=== PATIENT | female | born 1965 | race Caucasian/White ===

== ENCOUNTER → 2019-01-04 | Day surgery (SDC) | payer BC ==
--- NOTE | 2019-01-04 15:38 | ULT ---
ULTRASOUND GUIDED CORE BIOPSY OF RIGHT BREAST LESION 01/04/19 COMPARISON: None. HISTORY: 4-5 mm hypoechoic lesion within the right breast. FINDINGS: Informed consent was obtained prior to the procedure. There is a vague 4 mm hypoechoic lesion at the 11 o'clock position of the right breast. This lesion w as targeted for biopsy. Skin overlying the lesion was prepped and draped in a normal sterile fashion and anesthetized with 1% buffered lidocaine. With direct sonographic guidance, three 12 gauge core biopsies were obtained through the lesion. Spec imen sent to pathology for assessment, then, a post biopsy clip was placed immediately adjacent to th e right breast lesion and confirmed with mammography. Patient tolerated the procedure well. IMPRESSION: Successful ultrasound guided core biopsy of suspicious 4 mm right breast mass. POS: OFF
--- NOTE | 2019-01-05 09:56 | MMO ---
Right Breast MAMMO Unilat Diag DDI RT. CLINICAL HISTORY: Patient is 53 years old and is seen for diagnostic exam. VIEWS: The views performed were: . This study has been interpreted with the assistance of computer-aided detection. MAMMOGRAM FINDINGS: There are scattered fibroglandular densities. There is a stable mass with associated biopsy clip seen in the right breast. IMPRESSION: STABLE MASS IN THE RIGHT BREAST IS SUSPICIOUS. THE RESULTS OF THIS EXAM WERE SENT TO THE PATIENT. ACR BI-RADS Category 4 - Suspicious abnormality - biopsy should be considered MAMMOGRAPHY NOTE: 1. A negative mammogram report should not delay a biopsy if a dominant of clinically suspicious mass is present. 2. Approximately 10% to 15% of breast cancers are not detected by mammography. 3. Adenosis and dense breasts may obscure an underlying neoplasm. Reported by: JAROD MEJIA MD Electonically Signed: [id number]
== END ==
LOC: BICULT 12:28
PROVIDERS: ATTEND Family Medicine
PROC: 0H9T3ZX Drainage of Right Breast, Percutaneous Approach, Diagnostic (ICD-10-PCS; principal; 2019-01-04)
DX: C50.411 Malignant neoplasm of upper-outer quadrant of right female breast (principal); Z88.5 Allergy status to narcotic agent; Z88.8 Allergy status to other drugs, medicaments and biological substances
CPT/HCPCS: 19083; 88305; 88341; 88342

== ENCOUNTER 2019-01-17 07:58 | Outpatient (CLI) | payer BC ==
[2019-01-17 15:46] LABS: #Basophils 0.1 thou/uL (0.0-0.2); #Eosinphils 0.3 thou/uL (0.0-0.7); #Lymphocytes 4.8 thou/uL (1.20-3.40); #Monocytes 0.7 thou/uL (0.11-0.59); #Neutrophils 5.6 thou/uL (1.40-6.50); %Basophils 0.8 % (0.0-1.0); %Eosinophils 2.6 % (0.0-10.0); %Lymphocytes 41.9 % (21.0-51.0); %Monocytes 6.4 % (0.0-10.0); %Neutrophils 48.3 % (42.0-75.0); Mean Corpuscular HGB CONC 33.8 g/dL (32.0-36.0); Mean Corpuscular Hemoglobin 31.1 pg (27.0-31.0); Mean Corpuscular Volume 91.9 fL (78.0-98.0); Mean Platelet Volume 8.3 fL (7.4-10.4); Platelet Count 262 thou/uL (130-400); RBC Distribution Width 12.7 % (11.5-14.5); White Blood Cell (WBC) Count 11.5 thou/uL (4.8-10.8)
[2019-01-17 16:05] LABS: Anion Gap 14 mmol/L (10-20); BUN (Urea Nitrogen) 17 mg/dL (9.8-20.1); Calc. Creatinine Clearance 0 mL/min (70-130); Calcium 9.6 mg/dL (7.8-10.44); Carbon Dioxide 28 mmol/L (22-29); Chloride 105 mmol/L (98-107); Estimated GFR-MDRD 54; Glucose 127 mg/dL (70-105); Potassium 3.9 mmol/L (3.5-5.1); Sodium 143 mmol/L (136-145)
== END 2019-01-17 07:59 | disposition home or self-care (01) ==
LOC: LABBT 07:58
PROVIDERS: ATTEND Specialist
DX: Z01.818 Encounter for other preprocedural examination (principal); C50.911 Malignant neoplasm of unspecified site of right female breast
CPT/HCPCS: 80048; 85025; 93005; 93010

== ENCOUNTER → 2019-01-23 | Day surgery (SDC) | payer BC ==
[2019-01-17 14:58] VITALS: BMI 29.5
[~2019-01-23] MED LIST: Bupivacaine HCl 0.5%/Epinephrine 1:200,000/PF 30 ml Vial ONE; Dexamethasone 20 MG/5 ML VIAL ONE; Fentanyl 100 MCG/2 ML VIAL ONE; Isosulfan Blue 50 MG/5 ML VIAL ONE; Ketorolac Tromethamine 30 MG/ML VIAL ONE; Lidocaine 1% PF 5 ML VIAL ONE; Ondansetron PF 4 MG/2 ML Vial ONE; PROPOFOL 200 MG/20 ML VIAL ONE; Promethazine HCl 25 MG/ML VIAL ONE; ePHEDrine/0.9% NaCl/PF SYRINGE 50 mg/10 ml ONE; traMADol HCl 50 MG TAB ONE
--- NOTE | 2019-01-23 08:33 | NM ---
EXAM: NM Lymphoscintigraphy right breast PROVIDED CLINICAL HISTORY: Right breast neoplasm. COMPARISON: None FINDINGS: 431 uCi of technetium 99m filtered sulfur colloid was administered intradermally and subcutaneously i n a right periareolar location in 4 separate aliquots. Immediate anterior and lateral imaging demonstrates a focus of increased uptake in the right axilla likely corresponding to sentinel lymph n ode. IMPRESSION: Focus of increased uptake right axilla likely representing sentinel lymph node.
--- NOTE | 2019-01-23 13:42 | MMO ---
EXAM: Abdomen radiograph HISTORY: Right breast cancer COMPARISON: Mammogram and ultrasound 01/04/2019 FINDINGS: A specimen radiograph was obtained showing 2 needles in the specimen radiograph. No biopsy clip is seen. IMPRESSION: Nonvisualization of biopsy clip in the surgical specimen. Dr. Howard notified of findings at 1:30 PM on 01/23/2019. This patient will likely need a postoperative mammogram as soon as a surgical wound is healed to eval uate for a residual mass and for the residual biopsy clip.
--- NOTE | 2019-01-24 10:26 | OP ---
DATE OF PROCEDURE: 01/23/2019 PREOPERATIVE DIAGNOSIS: Right breast cancer. POSTOPERATIVE DIAGNOSIS: Right breast cancer. PROCEDURES PERFORMED: Right breast ultrasound-guided needle localization, needle localized right breast lumpectomy, right breast sentinel lymph node mapping and right axillary sentinel lymph node biopsy. ANESTHESIA: General endotracheal. INDICATIONS: The patient is a 53-year-old white female. 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 She is taken to the operating at this time for breast conserving surgery. DESCRIPTION OF OPERATION: Informed consent was obtained. The patient was taken to the operating room where general endotracheal anesthesia was obtained with the patient in supine position. Right breast was infiltrated with 3 mL of Lymphazurin. The breast was massaged for 5 minutes. The right breast and axilla were then prepped with ChloraPrep and draped in sterile fashion. Local anesthetic was infiltrated and a transverse axillary incision was created. Dissection was carried through skin and subcutaneous tissue. The Neoprobe was utilized to identify areas of maximum radio intensity. By using dual tracer technology, I was able to identify 3 sentinel lymph nodes. These were each dissected circumferentially and all investing lymphatics were divided between clamps and 3-0 silk ties. There was 1 dominant lymph node with much more blue staining and radio activity than the other 2. Meticulous hemostasis was obtained. The wound was closed in layers with 3-0 and 4-0 Monocryl. Attention was turned to the right breast. Ultrasound was utilized to identify the area of abnormality in the upper breast at approximately 11 o'clock radian. The lesion was marked on the skin in a graft type fashion. The Kopans wire was then passed through the lesion in a medial to lateral fashion. Additional local anesthetic was infiltrated. A transverse incision was created based on needle entry site. Dissection was carried through the skin and subcutaneous tissue. Flaps were raised superiorly and inferiorly. A wide core of tissue was dissected around the wire. The specimen was then oriented with sutures and submitted for specimen mammography. This did not reveal a biopsy clip within the lesion. The area was palpated. There was no other area of palpable irregularity. Hemostasis was meticulously obtained. The wound was closed in layers with 3-0 and 4-0 Monocryl and Dermabond was placed externally on both incisions. There were no complications. The patient tolerated the procedure well and was taken to recovery room in stable condition. Job ID: [id number]
== END ==
LOC: SDC 06:44
PROVIDERS: ATTEND Specialist
DX: C50.911 Malignant neoplasm of unspecified site of right female breast (principal); N60.91 Unspecified benign mammary dysplasia of right breast; N60.21 Fibroadenosis of right breast; I10 Essential (primary) hypertension; E78.5 Hyperlipidemia, unspecified; F17.210 Nicotine dependence, cigarettes, uncomplicated; M06.9 Rheumatoid arthritis, unspecified; Z17.0 Estrogen receptor positive status [ER+]; Z88.5 Allergy status to narcotic agent; Z88.8 Allergy status to other drugs, medicaments and biological substances; Z91.048 Other nonmedicinal substance allergy status
CPT/HCPCS: 76098; 78195; 88307; 88341; 88342; A9541; J0131; J0670; J0690; J1100; J1885; J2001; J2405; J2550; J2704; J3010; Q9968